=== PATIENT | female | born 1945 | race African-American/Black ===

== ENCOUNTER 2018-06-13 20:01 | Emergency (ER) | payer MEDICARE ==
[~2018-06-13] VITALS: Ht 165.1 cm; Wt 52.0 kg
[2018-06-13] MEDS ORDERED: ALBUTEROL (0.083%) 2.5MG/3ML NEB HHN ONE (20:45)
[2018-06-13] MEDS ORDERED: MAGNESIUM 2 G PREMIX 50 ML IV ONE (20:45)
[2018-06-13 22:05] LABS: BASOPHILS % 0.8 % (0.0-2.0); EOSINOPHILS % 4.9 % (0.0-5.0); HEMOGLOBIN. 12.7 g/dL (12.0-16.0); LYMPHOCYTES % 19.5 % (20.0-50.0); MEAN CORPUSCULAR HEMOGLOBIN 30.8 pg (28.0-32.0); MEAN CORPUSCULAR VOLUME 89.8 fL (81.0-99.0); MEAN PLATELET VOLUME 9.6 fl (7.4-10.4); MONOCYTES % 6.3 % (2.0-8.0); NEUTROPHILS % 68.5 % (40.0-76.0); PLATELET 194 x1000/uL (130-400); RED BLOOD CELL COUNT 4.12 mill/uL (4.2-5.4); RED CELL DISTRIBUTION WIDTH 14.8 % (11.6-14.6)
[2018-06-13 22:47] LABS: CLARITY URINE CLEAR (CLEAR); COLOR URINE YELLOW (YELLOW); KETONES URINE NEGATIVE (NEGATIVE); LEUKOCYTE ESTERASE URINE NEGATIVE (NEGATIVE); NITRITE URINE NEGATIVE (NEGATIVE); OCCULT BLOOD URINE NEGATIVE (NEGATIVE); PROTEIN URINE NEGATIVE (NEGATIVE); SPECIFIC GRAVITY URINE 1.012 (1.005-1.030); UROBILINOGEN URINE 0.2 E.U./dL (0.2-1.0)
[2018-06-14 00:12] LABS: CHLORIDE 105 mEq/L (98-107)
[2018-06-14 02:22] VITALS: BP 159/79
== END 2018-06-14 02:23 | disposition home or self-care (01) ==
LOC: ER 20:01 → CANBEDREQ 06-14 03:01
DX: R06.02 Shortness of breath (principal); R05 Cough; R06.2 Wheezing; R94.31 Abnormal electrocardiogram [ECG] [EKG]; I10 Essential (primary) hypertension; E78.5 Hyperlipidemia, unspecified; H40.9 Unspecified glaucoma
CPT/HCPCS: 36415; 71045; 80053; 81003; 83880; 84484; 85025; 85610; 93005; 94640; 96365; 96366; 99285; J3475; J7611

== ENCOUNTER 2025-06-16 18:31 | Inpatient (IN) | payer BC, MEDICARE ==
[~2025-06-16] VITALS: Ht 165.1 cm; Wt 44.6 kg
[2025-06-16 19:29] LABS: HEMATOCRIT. 29.5 % (36.0-48.0); HEMOGLOBIN. 9.9 g/dL (12.0-16.0); MEAN PLATELET VOLUME 7.4 fl (7.4-10.4); PLATELET 284 x1000/uL (130-400); RED BLOOD CELL COUNT 3.35 mill/uL (4.2-5.4); RED CELL DISTRIBUTION WIDTH 14.7 % (11.6-14.6)
[2025-06-16 19:41] LABS: CREATININE 1.5 mg/dL (0.6-1.0); UREA NITROGEN BLOOD 19.0 mg/dL (9-23)
[2025-06-16 19:50] VITALS: PULSE 87; RESP 20; O2SAT 100
[2025-06-16] MEDS: ALBUTEROL (0.083%) 2.5MG/3ML NEB HHN SCH (19:50)
[2025-06-16] MEDS: IPRATROPIUM BROMIDE (0.02%) 0.5MG/2.5ML NEB HHN SCH (19:51)
[2025-06-16 20:07] VITALS: PULSE 91; RESP 18; O2SAT 100
[2025-06-16 20:17] LABS: LYMPHOCYTES % MANUAL 5.0 % (20.0-60.0); MONOCYTES % MANUAL 1.0 % (2.0-8.0); NEUTROPHILS % MANUAL 94.0 % (45.0-75.0); PLATELET ESTIMATE NORMAL
[2025-06-16 20:31] VITALS: PULSE 96; RESP 20; O2SAT 99
[2025-06-16 22:06] LABS: INR 1.0
[2025-06-16 22:11] LABS: TROPONIN I HIGH SENSITIVITY 5 ng/L (3.0-34)
[2025-06-16 22:12] LABS: ASPARTATE AMINOTRANSFERASE 34 IU/L (<34); BILIRUBIN DIRECT < 0.1 mg/dL (<=3.0); BILIRUBIN TOTAL 0.3 mg/dL (0.1-1.0); PROTEIN TOTAL 7.9 g/dL (6.0-8.3)
[2025-06-16] MEDS: PIPERACILLIN/TAZO 3.375G/50ML 50 ML IV ONE (22:30)
[2025-06-16] MEDS: SODIUM CHLORIDE 0.9% (SEPSIS BOLUS) IV ONE (22:31)
[2025-06-16] MEDS: PREDNISONE 20MG TABLET PO ONE (22:43)
[2025-06-16] MEDS: PREDNISONE 20MG TABLET PO SCH (23:00)
[2025-06-16] MEDS: VANCOMYCIN 1G PREMIX 200 ML IV ONE (23:31)
[2025-06-16] MEDS ORDERED: ONDANSETRON HCL 4MG/2ML INJ IV PRN (23:45)
[2025-06-16] MEDS ORDERED: IPRATROPIUM/ALBUTEROL 0.5-3(2.5)MG/3ML NEB HHN PRN (23:45)
[2025-06-16] MEDS ORDERED: CLONIDINE 0.1MG TABLET PO PRN (23:45)
[2025-06-16] MEDS ORDERED: MAGNESIUM/ALUMINUM HYDROXIDE/SIMETHICONE 30ML UDC PO PRN (23:45)
[2025-06-16] MEDS ORDERED: ACETAMINOPHEN 325MG TABLET PO PRN (23:45)
[2025-06-16] MEDS ORDERED: DOCUSATE SODIUM 100MG CAPSULE PO PRN (23:45)
[2025-06-17] VITALS (11 sets, daily range): BP systolic 138–161; BP diastolic 66–89; PULSE 70–103; RESP 15–33; TEMP 36.5–37; O2SAT 93–99
[2025-06-17 00:16] LABS: INFLUENZA TYPE A Presumptive Negative (Pres. Neg.)
[2025-06-17 00:17] LABS: INFLUENZA TYPE B Presumptive Negative (Pres. Neg.); RESPIRATORY SYNCYTIAL VIRUS Not Detected (Not Detectd)
[2025-06-17 01:29] LABS: CLARITY URINE CLEAR (CLEAR); COLOR URINE YELLOW (YELLOW); GLUCOSE URINE NEGATIVE (NEGATIVE); PH URINE 7.0 (4.5-8.0); PROTEIN URINE TRACE (NEGATIVE); SPECIFIC GRAVITY URINE 1.010 (1.005-1.030)
[2025-06-17 01:30] LABS: KETONES URINE NEGATIVE (NEGATIVE); LEUKOCYTE ESTERASE URINE NEGATIVE (NEGATIVE); NITRITE URINE NEGATIVE (NEGATIVE); OCCULT BLOOD URINE TRACE (NEGATIVE); UROBILINOGEN URINE 1.010 E.U./dL (0.2-1.0)
[2025-06-17 01:44] LABS: *AMPHETAMINES SCREEN URINE NEGATIVE (NEGATIVE); *BARBITURATES SCREEN URINE NEGATIVE (NEGATIVE); *BENZODIAZEPINES SCREEN URINE NEGATIVE (NEGATIVE); *COCAINE SCREEN URINE NEGATIVE (NEGATIVE); CANNABINOID URINE SCREEN NEGATIVE (NEGATIVE); ECSTASY MDMA SCREEN URINE NEGATIVE (NEGATIVE); METHADONE URINE SCREEN NEGATIVE (NEGATIVE); OPIATES URINE SCREEN NEGATIVE (NEGATIVE); PHENCYCLIDINE URINE SCREEN NEGATIVE (NEGATIVE)
[2025-06-17] MEDS: CEFTRIAXONE 1GM/50ML 50 ML IV SCH (02:03)
[2025-06-17] MEDS: METHYLPREDNISOLONE SOD SUCC 40MG/ML (ACT-O-VIAL) IV SCH ×2 (02:03→22:08)
[2025-06-17] MEDS: GUAIFENESIN 200MG/10ML SUGAR FREE UDC PO PRN (02:04)
[2025-06-17] MEDS: IPRATROPIUM/ALBUTEROL 0.5-3(2.5)MG/3ML NEB HHN SCH (02:16)
[2025-06-17] MEDS ORDERED: ALBU90AE INH (02:45)
[2025-06-17] MEDS ORDERED: FLUT15.844 BOTHNSTRLS (02:45)
[2025-06-17] MEDS ORDERED: MONT-39 MT (02:45)
[2025-06-17] MEDS ORDERED: FLUT1BLS9 IH (02:45)
[2025-06-17] MEDS ORDERED: ATOR20TA65 PO (02:45)
[2025-06-17] MEDS ORDERED: IPRA3AMP9 HHN (02:45)
[2025-06-17] MEDS ORDERED: AMLO2.5T45 PO (02:45)
[2025-06-17] MEDS ORDERED: LATA2.5D7 EACHEYE (02:45)
[2025-06-17] MEDS: AZITHROMYCIN 500MG/250ML 250 ML IV SCH (03:10)
[2025-06-17] MEDS: AMLODIPINE 5MG TABLET PO SCH (04:45)
[2025-06-17 07:17] LABS: HEMATOCRIT. 30.4 % (36.0-48.0); HEMOGLOBIN. 10.2 g/dL (12.0-16.0); MEAN PLATELET VOLUME 8.0 fl (7.4-10.4); PLATELET 296 x1000/uL (130-400); RED BLOOD CELL COUNT 3.50 mill/uL (4.2-5.4); RED CELL DISTRIBUTION WIDTH 14.6 % (11.6-14.6)
[2025-06-17 07:27] LABS: TROPONIN I HIGH SENSITIVITY 12 ng/L (3.0-34)
[2025-06-17 07:29] LABS: CREATININE 1.0 mg/dL (0.6-1.0); TRIGLYCERIDE 39 mg/dL (0-150)
[2025-06-17 07:30] LABS: LDL CHOLESTEROL 42 mg/dL (5-100); UREA NITROGEN BLOOD 16 mg/dL (9-23)
[2025-06-17 07:32] LABS: T4 FREE 1.42 ng/dL (0.89-1.76)
[2025-06-17 09:28] LABS: CREATINE KINASE MB FRACTION 4.5 ng/mL (0.5-3.6)
[2025-06-17 10:27] LABS: BG BASE EXCESS -3.5 mmol/L (-2.0-3.0); BG CARBOXYHEMOGLOBIN 0.2 % (0.5-1.5); BG DEOXYHEMOGLOBIN 5.0 % (0.0-5.0); BG FRACTION INSPIRED OXYGEN 21; BG HCO3 ACT 18.9 mmol/L (21.0-28.0); BG METHEMOGLOBIN 0.1 % (0.5-1.5); BG OXYGEN SATURATION 95.0 % (94.0-98.0); BG OXYHEMOGLOBIN 94.7 % (94.0-98.0); BG PCO2 26.8 mmHg (32.0-45.0); BG PH 7.467 (7.350-7.450); BG PO2 70.9 mmHg (83.0-108.0); BG SAMPLE SITE RIGHT BRACHIAL; BG TOTAL HEMOGLOBIN 11.6 g/dL (12.0-16.0); BG VENT MODE ROOM AIR
[2025-06-17] MEDS: SODIUM CHLORIDE 0.9% 1,000 ML IV SCH (11:10)
[2025-06-17] MEDS: PANTOPRAZOLE SODIUM 40 MG/VIAL IV SCH (11:10)
[2025-06-17] MEDS: ENOXAPARIN 30MG/0.3ML SYR SUBCUT SCH (11:11)
[2025-06-17 15:14] LABS: PHOSPHORUS 3.0 mg/dL (2.5-4.9)
[2025-06-17 16:11] LABS: CREATINE KINASE MB FRACTION 3.8 ng/mL (0.5-3.6); TROPONIN I HIGH SENSITIVITY 7 ng/L (3.0-34)
[2025-06-17] MEDS: MONTELUKAST SODIUM 10MG TABLET PO SCH (17:21)
[2025-06-17] MEDS: LATANOPROST 0.005% OPHTH DROPS 2.5ML BOTHEYE SCH (21:00)
[2025-06-17] MEDS: ATORVASTATIN CALCIUM 20MG TABLET PO SCH (22:08)
[2025-06-18] VITALS (9 sets, daily range): BP systolic 124–141; BP diastolic 79–86; PULSE 68–97; RESP 17–24; TEMP 36.4–36.8; O2SAT 95–99
[2025-06-18] MEDS ORDERED: CEFTRIAXONE 1GM/50ML 50 ML IV SCH (01:00)
[2025-06-18 07:12] LABS: CREATININE 1.2 mg/dL (0.6-1.0)
[2025-06-18 07:13] LABS: UREA NITROGEN BLOOD 19 mg/dL (9-23)
[2025-06-18 07:15] LABS: PHOSPHORUS 3.2 mg/dL (2.5-4.9)
[2025-06-18 07:22] LABS: HEMATOCRIT. 30.4 % (36.0-48.0); HEMOGLOBIN. 10.3 g/dL (12.0-16.0); MEAN PLATELET VOLUME 8.1 fl (7.4-10.4); PLATELET 324 x1000/uL (130-400); RED BLOOD CELL COUNT 3.51 mill/uL (4.2-5.4); RED CELL DISTRIBUTION WIDTH 14.6 % (11.6-14.6)
[2025-06-18] MEDS: AMLODIPINE 10MG TABLET PO SCH (10:07)
[2025-06-18] MEDS: CEFTRIAXONE 1GM/50ML 50 ML IV SCH (10:08)
[2025-06-18] MEDS: AZITHROMYCIN 500MG/250ML 250 ML IV SCH (11:23)
[2025-06-18] MEDS: ACETAMINOPHEN 325MG TABLET PO PRN (11:42)
[2025-06-18 15:28] LABS: LYMPHOCYTES % MANUAL 5.0 % (20.0-60.0); MONOCYTES % MANUAL 3.0 % (2.0-8.0); NEUTROPHILS % MANUAL 92.0 % (45.0-75.0); PLATELET ESTIMATE NORMAL
[2025-06-18] MEDS ORDERED: METH4TAB17 MT (15:28)
[2025-06-18] MEDS ORDERED: AZIT500T8 MT (15:28)
[2025-06-18 17:03] LABS: LYMPHOCYTES % MANUAL 8.0 % (20.0-60.0); MONOCYTES % MANUAL 3.0 % (2.0-8.0); NEUTROPHILS % MANUAL 89.0 % (45.0-75.0); PLATELET ESTIMATE NORMAL
== END 2025-06-18 17:35 | disposition home or self-care (01) | DRG 193 ==
LOC: ER 18:31 → 3WST 22:34 → EDBEDREQ 22:49 → EDBEDREQTM 22:49 → ENRESERV 06-17 00:34
PROVIDERS: ADMIT Internal Medicine; ATTEND Internal Medicine
DX: J18.9 Pneumonia, unspecified organism (principal); J96.21 Acute and chronic respiratory failure with hypoxia; E87.20 Acidosis, unspecified; N17.9 Acute kidney failure, unspecified; J45.901 Unspecified asthma with (acute) exacerbation; D64.9 Anemia, unspecified; I10 Essential (primary) hypertension; Z20.822 Contact with and (suspected) exposure to COVID-19; E86.0 Dehydration; R73.03 Prediabetes; T48.6X5A Adverse effect of antiasthmatics, initial encounter; Y92.89 Other specified places as the place of occurrence of the external cause
CPT/HCPCS: 36415; 36600; 71045; 80048; 80061; 80076; 80305; 81003; 82375; 82550; 82553; 82805; 83036; 83605; 83735; 83880; 84100; 84145; 84439; 84443; 84484; 85025; 87420; 87426; 87804; 93005; 93970; 94070; 94618; 94640; 94664; 97166; 97535; 98960; 99291; J0456; J0696; J1650; J2470; J2543; J2919; J3373; J7030; J7512